=== PATIENT | male | born 1975 | race Two or more races ===

== ENCOUNTER 2016-08-26 16:17 | Emergency (ER) | payer SELFPAY ==
[~2016-08-26] VITALS: Ht 175.3 cm; Wt 83.9 kg
[2016-08-26 16:23] VITALS: BP 142/89
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
[2016-08-26 18:30] VITALS: BP 138/86
[2016-08-26] MEDS ORDERED: CYCLOBENZAPRINE10 MG ORAL (18:58)
[2016-08-26] MEDS ORDERED: SOMA350 MG PO (18:58)
[2016-08-26] MEDS ORDERED: IBUPROFEN600 MG ORAL (18:58)
[2016-08-26 19:13] VITALS: BP 144/88
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
== END 2016-08-26 19:16 | disposition home or self-care (01) ==
LOC: EMR 17:43
DX: S16.1XXA Strain of muscle, fascia and tendon at neck level, initial encounter (principal); M62.830 Muscle spasm of back; S09.8XXA Other specified injuries of head, initial encounter; V43.53XA Car driver injured in collision with pick-up truck in traffic accident, initial encounter; Y92.414 Local residential or business street as the place of occurrence of the external cause; I10 Essential (primary) hypertension; M50.30 Other cervical disc degeneration, unspecified cervical region
CPT/HCPCS: 70450; 72125; 99284